=== PATIENT | female | born 2000 | race Caucasian/White ===

== ENCOUNTER 2020-12-07 11:23 | Outpatient (CLI) | payer OTHER, SELFPAY ==
--- NOTE | 2020-12-07 11:58 | ECG_ITS ---
Measurements Intervals Carpenter Rate: 77 P: 11 MO: 118 QRS: 19 QRSD: 85 T: 29 QT: 377 QTc: 428 Interpretive Statements SINUS RHYTHM WITH SINUS ARRHYTHMIA WITH SHORT MO INTERVAL BORDERLINE ECG Electronically Signed On 12-07-2020 12:10:12 CDT by Travis Sol D.O.
[2020-12-07 12:24] LABS: Basophils Absolute Auto 0.1 K/mm3 (0.0-0.1); Basophils Percent Auto 0.6 % (0.2-1.2); Eosinophils Absolute Auto 0.2 K/mm3 (0-0.3); Eosinophils Percent Auto 1.7 % (0-4.4); Hematocrit 38.4 % (37.0-47.0); Hemoglobin 12.6 g/dL (12.0-15.0); Immature Granulocyte Absolute 0.03 K/mm3 (0.00-0.031); Immature Granulocyte Percent A 0.3 % (0-0.5); Lymphocytes Absolute Auto 2.41 K/mm3 (0.9-3.2); Lymphocytes Percent Auto 25.9 % (18.3-44.2); Mean Corpuscular HGB Conc 32.8 g/dl (32-36); Mean Corpuscular Hemoglobin 28.1 pg (26-34); Mean Corpuscular Volume 85.5 fl (80-100); Mean Platelet Volume 9.2 fl (7.4-10.4); Monocytes Absolute Auto 0.6 K/mm3 (0.1-0.6); Monocytes Percent Auto 6.5 % (2.6-8.5); Neutrophils Absolute Auto 6.1 K/mm3 (1.3-6.7); Platelet Count Result 406 k/mm3 (150-375); Red Blood Count 4.49 M/mm3 (4.2-5.4); Red Cell Distribution Width 14.4 % (11.5-14.5); White Blood Count 9.3 K/mm3 (4.5-10.0)
[2020-12-07 12:42] LABS: Anion Gap 6 mmol/L (8-16); Blood Urea Nitrogen 11 mg/dL (7-17); Calcium 9.1 mg/dL (8.4-10.2); Carbon Dioxide 25 mmol/L (22-30); Chloride 107 mmol/L (98-107); Estimated Glomerular Filt Rate > 60; Glucose 87 mg/dL (65-105); Potassium 3.9 mmol/L (3.4-5.0); Sodium 138 mmol/L (137-145)
== END 2020-12-07 11:24 | disposition home or self-care (01) ==
PROVIDERS: PCP Family Medicine; Visit Provider Nurse Practitioner Family
DX: R55 Syncope and collapse (principal)
CPT/HCPCS: 36415; 80048; 84443; 85025; 93005

== ENCOUNTER 2020-12-16 14:01 | Outpatient (CLI) | payer OTHER, SELFPAY ==
--- NOTE | 2020-12-21 13:58 | WPDHOLTEREM ---
Holter/Event Monitor Holter/Event Monitor Date of procedure: 12/16/20 Procedure Type: 48 hour holter monitor Indications: Syncope Conclusion: 1. 48 hour holter monitor on 12/16/20. 2. Underlying rhythm is sinus rhythm. HR range 48-162 bpm; average HR 80 bpm. 3. There is 1 premature supraventricular complex. No supraventricular tachycardia. 4. There are 928 premature ventricular complexes. No ventricular tachycardia. 5. No sinoatrial or atrioventricular blocks. No significant pauses greater than 2 seconds. 6. No symptoms available for correlation.
== END 2020-12-16 14:02 | disposition home or self-care (01) ==
PROVIDERS: PCP Family Medicine; Visit Provider Nurse Practitioner Family
DX: R55 Syncope and collapse (principal)
CPT/HCPCS: 93225; 93226

== ENCOUNTER 2020-12-18 15:09 | Outpatient (CLI) | payer OTHER, SELFPAY ==
[2020-12-18 15:39] LABS: Basophils Absolute Auto 0.1 K/mm3 (0.0-0.1); Basophils Percent Auto 0.6 % (0.2-1.2); Eosinophils Absolute Auto 0.2 K/mm3 (0-0.3); Eosinophils Percent Auto 2.2 % (0-4.4); Hematocrit 39.4 % (37.0-47.0); Hemoglobin 12.9 g/dL (12.0-15.0); Immature Granulocyte Absolute 0.02 K/mm3 (0.00-0.031); Immature Granulocyte Percent A 0.2 % (0-0.5); Lymphocytes Absolute Auto 2.64 K/mm3 (0.9-3.2); Lymphocytes Percent Auto 30.3 % (18.3-44.2); Mean Corpuscular HGB Conc 32.7 g/dl (32-36); Mean Corpuscular Hemoglobin 27.6 pg (26-34); Mean Corpuscular Volume 84.4 fl (80-100); Mean Platelet Volume 9.3 fl (7.4-10.4); Monocytes Absolute Auto 0.8 K/mm3 (0.1-0.6); Monocytes Percent Auto 8.9 % (2.6-8.5); Neutrophils Percent Auto 57.8 % (45.5-73.1); Platelet Count Result 394 k/mm3 (150-375); Red Blood Count 4.67 M/mm3 (4.2-5.4); Red Cell Distribution Width 13.6 % (11.5-14.5); White Blood Count 8.7 K/mm3 (4.5-10.0)
== END 2020-12-18 15:10 | disposition home or self-care (01) ==
LOC: ANHLAB 15:10
PROVIDERS: PCP Family Medicine; Visit Provider Nurse Practitioner Family
DX: R79.89 Other specified abnormal findings of blood chemistry (principal)
CPT/HCPCS: 36415; 85025

== ENCOUNTER 2020-12-19 10:35 | Outpatient (CLI) | payer OTHER, SELFPAY ==
--- NOTE | ~2020-12-19 | US_ITS ---
EXAMINATION: US carotid duplex BI EXAM DATE: 12/19/2020 11:33 INDICATION: R55 - Syncope and collapse. TECHNIQUE: Grayscale, color and pulsed Doppler images of the cervical carotid arteries were obtained . The degree of vessel stenosis is placed in one of the following categories: normal, <50% stenosis, 50-69% stenosis, >=70% stenosis but less than near-occlusion, near-occlusion, or occlusion. Note that percent stenosis relative to normal distal artery lumen diameter is indirectly measured from velocit y measurements as described by Rivas, et al. Radiology 2003; 229:340-346. There is no prior study fo r comparison. FINDINGS: RIGHT SIDE: Right common carotid artery peak systolic velocity (PSV in cm/s): 168 Right bulb/internal carotid artery peak systolic velocity (PSV in cm/s): 104 Right internal carotid artery end diastolic velocity (EDV in cm/s): 35 Right ICA/CCA peak systolic ratio: 0.6 Right external carotid artery peak systolic velocity (PSV in cm/s): 95 Right vertebral artery antegrade flow: yes There is no focal plaque identified. LEFT SIDE: Left common carotid artery peak systolic velocity (PSV in cm/s): 143 Left bulb/internal carotid artery peak systolic velocity (PSV in cm/s): 87 Left internal carotid artery end diastolic velocity (EDV in cm/s): 32 Left ICA/CCA peak systolic ratio: 0.6 Left external carotid artery peak systolic velocity (PSV in cm/s): 88 Left vertebral artery antegrade flow: yes There is no focal plaque identified. IMPRESSION: 1. Normal right internal carotid artery. 2. Normal left internal carotid artery. > Reviewed, dictated and finalized at location A.
== END 2020-12-19 10:36 | disposition home or self-care (01) ==
PROVIDERS: PCP Family Medicine; Visit Provider Nurse Practitioner Family
DX: R55 Syncope and collapse (principal)
CPT/HCPCS: 93880

== ENCOUNTER → 2021-02-04 07:39 | Outpatient (CLI) | payer OTHER, SELFPAY ==
--- NOTE | ~2021-02-04 | MR_ITS ---
EXAMINATION: MR brain/brain stem wo con EXAM DATE: 02/04/2021 08:26 INDICATION: R55 - Syncope and collapse. 2 episodes of November 2020. Unsteady gait. TECHNIQUE: Magnetic resonance imaging (MRI) of the brain/brain stem obtained without contrast. Renata jernigan T1, axial diffusion, gradient echo (T2*), T1, T2, FLAIR sequences obtained. There is no prior st udy for comparison. FINDINGS: There is thin T2 signal abnormality along the right side of the corpus callosum callosum po steriorly. There is approximately 4 x 9 mm right frontal lobe white matter signal abnormality, anothe r slightly smaller in the right parietal lobe. Small region abnormal T2 signal in the right frontopar ietal region and also just above the right tuber cinereum. No definite posterior fossa signal abnorma lities. 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 Some differential considerations include de myelinating disease such as multiple sclerosis or acute disseminated encephalomyelitis (ADEM), vascul opathy, lyme's disease or reactive astrocytosis (gliosis) secondary to nonspecific etiology. Given in volvement of portion of corpus callosum, possibility of multiple sclerosis should be evaluated. Consi kelley neurological consult. Postcontrast brain MRI, cervical and thoracic spine are also sometimes perf ormed. There are no areas of restricted diffusion to suggest acute infarction. There is no acute hemorrhage seen on the T2*, a hemosiderin sensitive sequence. No intraparenchymal brain mass. The ventricles a re normal in size. There are no extra-axial collections. Flow voids are seen in the cerebral arteri es on the T2-weighted sequences consistent with their expected patency. The orbits are unremarkable. Soft tissue is unremarkable. IMPRESSION: Several small right-sided signal abnormalities, one involving corpus callosum posteriorly ; possible multiple sclerosis. Some other considerations and recommendation above. Reviewed, dictated and finalized at location A. IMPRESSION: Several small right-sided signal abnormalities, one involving corpu s callosum posteriorly; possible multiple sclerosis. Some other considerations and recommendation above.
== END ==
PROVIDERS: PCP Family Medicine; Visit Provider Nurse Practitioner Family
DX: R55 Syncope and collapse (principal)
CPT/HCPCS: 70551

== ENCOUNTER 2021-02-04 08:32 | Outpatient (CLI) | payer OTHER, SELFPAY ==
[2021-02-04 08:55] LABS: Basophils Percent Auto 0.3 % (0.2-1.2); Eosinophils Absolute Auto 0.1 K/mm3 (0-0.3); Hematocrit 42.2 % (37.0-47.0); Hemoglobin 13.6 g/dL (12.0-15.0); Immature Granulocyte Absolute 0.02 K/mm3 (0.00-0.031); Immature Granulocyte Percent A 0.3 % (0-0.5); Lymphocytes Absolute Auto 2.09 K/mm3 (0.9-3.2); Lymphocytes Percent Auto 29.1 % (18.3-44.2); Mean Corpuscular HGB Conc 32.2 g/dl (32-36); Mean Corpuscular Hemoglobin 27.7 pg (26-34); Mean Corpuscular Volume 85.9 fl (80-100); Monocytes Absolute Auto 0.4 K/mm3 (0.1-0.6); Monocytes Percent Auto 5.4 % (2.6-8.5); Neutrophils Absolute Auto 4.6 K/mm3 (1.3-6.7); Neutrophils Percent Auto 63.9 % (45.5-73.1); Platelet Count Result 343 k/mm3 (150-375); Red Blood Count 4.91 M/mm3 (4.2-5.4); Red Cell Distribution Width 13.9 % (11.5-14.5); White Blood Count 7.2 K/mm3 (4.5-10.0)
== END 2021-02-04 08:33 | disposition home or self-care (01) ==
LOC: ANHLAB 08:35
PROVIDERS: PCP Family Medicine; Visit Provider Nurse Practitioner Family
DX: R79.89 Other specified abnormal findings of blood chemistry (principal)
CPT/HCPCS: 36415; 85025